=== PATIENT | male | born 1975 ===

== ENCOUNTER 2018-05-06 11:40 | Outpatient (CLI) | payer OTHER ==
[~2018-05-06] VITALS: Ht 167.6 cm; Wt 90.7 kg
== END 2018-05-06 15:11 | disposition home or self-care (01) ==
LOC: OFIC 805 11:40
DX: J35.1 Hypertrophy of tonsils (principal); J35.01 Chronic tonsillitis

== ENCOUNTER 2018-05-24 11:12 | Outpatient (CLI) | payer OTHER ==
[~2018-05-24] VITALS: Ht 152.4 cm; Wt 90.7 kg
[2018-05-24] MEDS ORDERED: LUPIN PO (14:48)
[2018-05-24] MEDS ORDERED: CLONAZEPAM0.5 MG PO (14:49)
== END 2018-05-24 11:30 | disposition home or self-care (01) ==
LOC: EDBD 11:12 → OFIC 805 11:12
DX: J03.80 Acute tonsillitis due to other specified organisms (principal)

== ENCOUNTER 2018-06-08 09:02 | Outpatient (CLI) | payer OTHER ==
[~2018-06-08] VITALS: Ht 152.4 cm; Wt 93.0 kg
[~2018-06-08 09:02] MED LIST: CLONAZEPAM0.5 MG PO; LUPIN PO
[2018-06-14] MEDS ORDERED: SYNTHROID75 MCG PO (08:13)
[2018-06-14] MEDS ORDERED: PROGESTER (08:14)
[2018-06-14] MEDS ORDERED: CLONAZEPAM0.5 M1 PO (08:19)
[2018-06-14] MEDS ORDERED: LISINOPRIL20 MG PO (08:20)
== END 2018-06-08 09:20 | disposition home or self-care (01) ==
LOC: OFIC 805 09:02
DX: J03.80 Acute tonsillitis due to other specified organisms (principal)

== ENCOUNTER 2018-06-21 06:00 | Day surgery (SDC) | payer OTHER ==
[~2018-06-21 06:00] MED LIST changes: +CLONAZEPAM0.5 M1 PO; +LISINOPRIL20 MG PO; +PROGESTER; +SYNTHROID75 MCG PO
[2018-06-21] MEDS ORDERED: CARAFATE1 GM/10 ML PO (11:35)
[2018-06-21] MEDS ORDERED: ACETAMINOPHEN12.5 ML PO (11:39)
[2018-06-21] MEDS ORDERED: ACETAMINOP160 MG/51 PO (11:42)
== END 2018-06-21 13:20 | disposition home or self-care (01) ==
LOC: CIR.AMB → EDBD → CIR.AMB 06:00
DX: J35.01 Chronic tonsillitis (principal)

== ENCOUNTER 2018-07-06 10:31 | Outpatient (CLI) | payer OTHER ==
[~2018-07-06] VITALS: Ht 152.4 cm; Wt 93.0 kg
[~2018-07-06 10:31] MED LIST changes: +ACETAMINOP160 MG/51 PO; +ACETAMINOPHEN12.5 ML PO; +CARAFATE1 GM/10 ML PO
== END 2018-07-06 10:45 | disposition home or self-care (01) ==
LOC: OFIC 805 10:31
DX: J03.80 Acute tonsillitis due to other specified organisms (principal); J35.01 Chronic tonsillitis; H90.3 Sensorineural hearing loss, bilateral

== ENCOUNTER 2018-08-10 14:26 | Emergency (ER) | payer OTHER ==
[~2018-08-10] VITALS: Ht 165.1 cm; Wt 93.4 kg
== END 2018-08-10 20:29 | disposition home or self-care (01) ==
LOC: ER 14:26
DX: R00.0 Tachycardia, unspecified (principal); F06.4 Anxiety disorder due to known physiological condition